=== PATIENT | male | born 1975 | race Caucasian/White ===

== ENCOUNTER 2018-03-31 22:07 | Emergency (ER) | payer OTHER ==
[2018-03-31] MEDS ORDERED: HYDROCODONE/APAP 10/325 TAB ONE (22:34)
--- NOTE | 2018-04-01 00:07 | ER ---
Nurse's Notes [facility] Name: Jose Maria Anderson Age: 42 yrs Sex: Male : 1975 Arrival Date: 03/31/2018 Time: 22:10 Bed 19 Private MD: Livan Diaz Diagnosis: Subacute right wrist fracture Presentation: 03/31 22:15 Presenting complaint: Patient states: Fell in bathtub 2 weeks ago, with outstretched lp1 arms, pain to right wrist and thought it was just a sprain; Worsening swelling to right hand tonight, complaint of pain to right wrist. Transition of care: patient was not received from another setting of care. Onset of symptoms was March 31, 2018. Risk Assessment: Do you want to hurt yourself or someone else? Patient reports no desire to harm self or others. Initial Sepsis Screen: Does the patient meet any 2 criteria? No. Patient's initial sepsis screen is negative. Does the patient have a suspected source of infection? No. Patient's initial sepsis screen is negative. Care prior to arrival: None. 22:15 Method Of Arrival: Ambulatory lp1 22:15 Acuity: ALY 4 lp1 Historical: - Allergies: 22:18 No Known Allergies; lp1 - Home Meds: 22:18 Atenolol Oral [Active]; Lisinopril Oral [Active]; lp1 - PMHx: 22:18 Hypertension; lp1 - PSHx: 22:18 None; lp1 - Immunization history:: Adult Immunizations up to date. - Social history:: Smoking status: Patient/guardian denies using tobacco. - Ebola Screening: : No symptoms or risks identified at this time. Screenin:18 Abuse screen: Denies threats or abuse. Denies injuries from another. Nutritional lp1 screening: No deficits noted. Tuberculosis screening: No symptoms or risk factors identified. Fall Risk None identified. Assessment: 22:25 General: Appears in no apparent distress. comfortable, Behavior is calm, cooperative, jb4 appropriate for age. Pain: Complains of pain in right wrist. Pain does not radiate. Pain currently is 3 out of 10 on a pain scale. Quality of pain is described as throbbing. Neuro: Level of Consciousness is awake, alert, obeys commands, Oriented to person, place, time, situation. Cardiovascular: Patient's skin is warm and dry. Respiratory: Airway is patent Respiratory effort is even, unlabored, Respiratory pattern is regular, symmetrical. GI: No signs and/or symptoms were reported involving the gastrointestinal system. : No signs and/or symptoms were reported regarding the genitourinary system. EENT: No signs and/or symptoms were reported regarding the EENT system. Derm: Skin is intact, Skin is pink, warm \T\ dry. Musculoskeletal: Circulation, motion, and sensation intact. Capillary refill < 3 seconds, in right fingers. Swelling present in right wrist. Reports numbness in right hand. 23:30 Reassessment: Patient appears in no apparent distress at this time. Patient and/or jb4 family updated on plan of care and expected duration. Pain level reassessed. Patient is alert/active/playful, equal unlabored respirations, skin warm/dry/pink. 04/01 00:30 Reassessment: Patient appears in no apparent distress at this time. Patient and/or jb4 family updated on plan of care and expected duration. Pain level reassessed. Patient is alert/active/playful, equal unlabored respirations, skin warm/dry/pink. Vital Signs: 03/31 22:18 BP 157 / 96; Pulse 109; Resp 20; Temp 97.8(TE); Pulse Ox 94% on R/A; Weight 129.27 kg; lp1 Height 5 ft. 7 in. (170.18 cm); Pain 3; 23:30 BP 121 / 97; Pulse 98; Resp 18; Pulse Ox 94% on R/A; jb4 04/01 00:30 BP 154 / 98; Pulse 94; Resp 16; Pulse Ox 95% on R/A; jb4 03/31 22:18 Body Mass Index 44.64 (129.27 kg, 170.18 cm) lp1 ED Course: 03/31 22:10 Patient arrived in ED. es 22:10 Livan Diaz MD is Private Physician. es 22:14 [facility] Cordoba [facility]. jr8 22:14 Orion Swenson MD is Attending Physician. jr8 22:17 Triage completed. lp1 22:18 Arm band placed on left wrist. lp1 22:20 Patient has correct armband on for positive identification. Bed in low position. Call jb4 light in reach. Side rails up X 1. Pulse ox on. NIBP on. 22:25 Livan Almaraz, RN is Primary Nurse. jb4 22:59 Wrist Right 3 View In Process Unspecified. EDMS 04/01 00:06 Orlando Agrawal MD is Referral Physician. jr8 00:30 No provider procedures requiring assistance completed. Patient did not have IV access jb4 during this emergency room visit. 00:37 Orthoglass splint: Volar splint applied on right arm applied to right arm in a volar mw2 splint with 4 inch orthoglass and 2 harvinder wraps. CMS intact. Administered Medications: 03/31 22:30 Drug: [place] 10 mg-325 mg 1 tabs Route: PO; jb4 22:49 Follow up: Response: No adverse reaction; Pain is decreased jb4 Outcome: 04/01 00:06 Discharge ordered by . jr8 00:30 Discharged to home ambulatory. jb4 00:30 Condition: stable 00:30 Discharge instructions given to patient, Instructed on discharge instructions, follow up and referral plans. medication usage, Demonstrated understanding of instructions, follow-up care, medications, Prescriptions given X 2. 00:55 Patient left the ED. jb4 Signatures: Dispatcher [employer] [facility] Shannon Livingston Laura, RN RN lp1 Gavino Cordoba PA PA jr8 Livan Almaraz, RN RN jb4 Hernán Whitt mw2
--- NOTE | 2018-04-01 00:07 | EDPHYS ---
Physician Documentation [facility] Name: Jose Maria Anderson Age: 42 yrs Sex: Male : 1975 Arrival Date: 03/31/2018 Time: 22:10 Bed 19 Private MD: Livan Diaz ED Physician Orion Swenson HPI: 03/31 22:59 This 42 yrs old Male presents to ER via Ambulatory with complaints of Wrist jr8 Injury. 22:59 The patient or guardian reports pain, swelling, tenderness. The complaints affect the jr8 right wrist diffusely. Onset: The symptoms/episode began/occurred 2 week(s) ago. Modifying factors: The symptoms are alleviated by holding still, the symptoms are aggravated by movement. Associated signs and symptoms: The patient has no apparent associated signs or symptoms. The patient has not experienced similar symptoms in the past. The patient has not recently seen a physician. Stated that he landed on right wrist about 2 weeks ago after an accidental fall. Used wrist to brace his fall. Had pain on/off since then. Thought it was getting better so started to use wrist more. Now with swelling and increased pain to affected wrist . Historical: - Allergies: 22:18 No Known Allergies; lp1 - Home Meds: 22:18 Atenolol Oral [Active]; Lisinopril Oral [Active]; lp1 - PMHx: 22:18 Hypertension; lp1 - PSHx: 22:18 None; lp1 - Immunization history:: Adult Immunizations up to date. - Social history:: Smoking status: Patient/guardian denies using tobacco. - Ebola Screening: : No symptoms or risks identified at this time. ROS: 22:59 Eyes: Negative for injury, pain, redness, and discharge, ENT: Negative for injury, jr8 pain, and discharge, Neck: Negative for injury, pain, and swelling, Cardiovascular: Negative for chest pain, palpitations, and edema, Respiratory: Negative for shortness of breath, cough, wheezing, and pleuritic chest pain, Abdomen/GI: Negative for abdominal pain, nausea, vomiting, diarrhea, and constipation, Back: Negative for injury and pain, Skin: Negative for injury, rash, and discoloration, Neuro: Negative for headache, weakness, numbness, tingling, and seizure. 22:59 MS/extremity: Positive for pain, swelling, tenderness, of the right wrist. Exam: 22:59 Cardiovascular: Regular rate and rhythm with a normal S1 and S2. No gallops, murmurs, jr8 or rubs. Normal PMI, no JVD. No pulse deficits. Respiratory: Lungs have equal breath sounds bilaterally, clear to auscultation and percussion. No rales, rhonchi or wheezes noted. No increased work of breathing, no retractions or nasal flaring. Skin: Warm, dry with normal turgor. Normal color with no rashes, no lesions, and no evidence of cellulitis. Neuro: Awake and alert, GCS 15, oriented to person, place, time, and situation. Cranial nerves II-XII grossly intact. Motor strength 5/5 in all extremities. Sensory grossly intact. Cerebellar exam normal. Normal gait. 22:59 Musculoskeletal/extremity: Extremities: grossly normal except: noted in the right wrist: pain, swelling, tenderness, ROM: intact in all extremities, full active range of motion, full passive range of motion, limited active range of motion due to pain, limited passive range of motion due to pain, Circulation is intact in all extremities. Sensation intact. Vital Signs: 22:18 BP 157 / 96; Pulse 109; Resp 20; Temp 97.8(TE); Pulse Ox 94% on R/A; Weight 129.27 kg; lp1 Height 5 ft. 7 in. (170.18 cm); Pain 3/10; 23:30 BP 121 / 97; Pulse 98; Resp 18; Pulse Ox 94% on R/A; jb4 04/01 00:30 BP 154 / 98; Pulse 94; Resp 16; Pulse Ox 95% on R/A; jb4 03/31 22:18 Body Mass Index 44.64 (129.27 kg, 170.18 cm) lp1 Procedures: 00:05 Splinting: Splint applied to right wrist using Orthoglass splint, applied by tech. arreaga nurse. Examined by me, post splint application: neurovascular intact, 2+ distal pulses palpable, brisk capillary refill noted, Patient tolerated well. MDM: 03/31 22:14 Patient medically screened. jr8 04/01 00:05 Data reviewed: vital signs, nurses notes, radiologic studies, plain films, and as a jr8 result, I will discharge patient. Data interpreted: Pulse oximetry: on room air is 94 %. Interpretation: acceptable. Counseling: I had a detailed discussion with the patient and/or guardian regarding: the historical points, exam findings, and any diagnostic results supporting the discharge/admit diagnosis, radiology results, the need for outpatient follow up, a orthopedic surgeon, to return to the emergency department if symptoms worsen or persist or if there are any questions or concerns that arise at home. 03/31 22:50 Order name: Wrist Right 3 View EDAL 04/01 00:43 Order name: Slgarima; Complete Time: 00:44 mw2 Administered Medications: 03/31 22:30 Drug: [place] 10 mg-325 mg 1 tabs Route: PO; jb4 22:49 Follow up: Response: No adverse reaction; Pain is decreased jb4 Disposition: 04/01 06:49 Co-signature as Attending Physician, Orion Swenson MD Available for consultation at ps1 all times. . Disposition: 04/01/18 00:06 Discharged to Home. Impression: Subacute right wrist fracture . - Condition is Stable. - Discharge Instructions: Wrist Fracture Treated With Immobilization. - Prescriptions for Ibuprofen 800 mg Oral Tablet - take 1 tablet by ORAL route every 12 hours As needed take with food; 20 tablet. Tylenol- Codeine #3 300-30 mg Oral Tablet - take 2 tablet by ORAL route every 6 hours As needed; 30 tablet. - Medication Reconciliation Form, Thank You Letter, Antibiotic Education, Prescription Opioid Use form. - Follow up: Orlando Agrawal MD; When: 2 - 3 days; Reason: Recheck today's complaints, Continuance of care, Re-evaluation by your physician. - Problem is new. - Symptoms have improved. Signatures: Dispatcher [employer] [facility] Mikayla Torrez, RN RN lp1 Gavino Cordoba PA PA jr8 Livan Almaraz RN RN jb4 Orion Swenson MD MD ps1 Hernán Whitt mw2 Corrections: (The following items were deleted from the chart) 00:24 00:20 Wrist Right 3 View+RAD.RAD.BRZ ordered. [facility] 00:55 00:06 04/01/2018 00:06 Discharged to Home. Impression: Subacute right wrist fracture . jb4 Condition is Stable. Forms are Medication Reconciliation Form, Thank You Letter, Antibiotic Education, Prescription Opioid Use. Follow up: Orlando Agrawal; When: 2 - 3 days; Reason: Recheck today's complaints, Continuance of care, Re-evaluation by your physician. Problem is new. Symptoms have improved. jr8
--- NOTE | 2018-04-01 09:05 | RAD REPORT ---
EXAM DESCRIPTION: RAD - Wrist Right 3 View - 03/31/2018 10:59 pm CLINICAL HISTORY: RIGHT WRIST PAIN Pain COMPARISON: No comparisons FINDINGS: An osteopenic and somewhat mottled appearance to the carpal bones is seen. Soft tissue swe lling is also present. No definitive fracture is identified. The pattern could indicate reflex symp athetic dystrophy. Bone scan assessment may be of value for followup.
== END 2018-04-01 00:55 | disposition home or self-care (01) ==
LOC: ER 22:07
PROC: 2W3CX1Z Immobilization of Right Lower Arm using Splint (ICD-10-PCS; principal; 2018-04-01)
DX: S62.101A Fracture of unspecified carpal bone, right wrist, initial encounter for closed fracture (principal); W19.XXXA Unspecified fall, initial encounter; Y93.9 Activity, unspecified; Y92.9 Unspecified place or not applicable; I10 Essential (primary) hypertension
CPT/HCPCS: 99284